=== PATIENT | female | born 2000 | race Caucasian/White ===

== ENCOUNTER 2022-04-09 12:04 | Emergency (ER) | payer OTHER ==
[~2022-04-09] VITALS: Ht 165.1 cm; Wt 57.2 kg
== END 2022-04-09 15:02 | disposition home or self-care (01) ==
LOC: ER 12:04 → EMR PED 12:04
DX: U07.1 COVID-19 (principal); A49.3 Mycoplasma infection, unspecified site

== ENCOUNTER 2022-04-11 10:45 | Outpatient (CLI) | payer OTHER | END 2022-04-11 11:15 | disposition home or self-care (01) | LOC: ASH CLINIC 10:45 | PROVIDERS: ATTEND Emergency Medicine Pediatric Emergency Medicine | DX: U07.1 COVID-19 (principal) ==